=== PATIENT | male | born 1945 | race Caucasian/White ===

== ENCOUNTER 2017-12-03 07:38 | Inpatient (IN) | payer OTHER ==
[2017-12-03] VITALS (11 sets, daily range): BP systolic 118–139; BP diastolic 45–79
[~2017-12-03] VITALS: Ht 175.3 cm; Wt 76.7 kg
--- NOTE | ~2017-12-03 | EKG ---
[address] [address] ELECTROCARDIOGRAM REPORT Name: ROGER DING Room #: 209-P [facility] IN M.R.#: [id number] Admission: 12/04/17 Attend Phys: Tomas Frank MD Discharge: 12/05/17 Date of : 43 Report #: [id number] THIS REPORT FOR: //name// [facility] Test Date: 2017-12-04 Test Time: 06:25:56 Pat Name: ROGER DING Department: Room: 209 Gender: M Tube Wrapper: chikis : 1945 Requested By: Tomas Frank Order Number: [id number] MD: Nato Arias Measurements Intervals Watson Rate: 60 P: AK: 168 QRS: 89 QRSD: 154 T: -30 QT: 381 QTc: 381 Interpretive Statements Atrial-paced rhythm Right bundle branch block Compared to ECG 02/02/2004 06:37:06 Right bundle-branch block now present Atrial pacing now present Electronically Signed On 12-05-2017 13:40:56 CDT by Nato Arias [email or web address] <ELECTRONICALLY SIGNED> By: Nato Arias MD, [facility] 12/05/17 1340 0625 0625 Nato Arias MD, [facility] /EPI
--- NOTE | ~2017-12-03 | P ---
[facility] [place] [address] PROCEDURE REPORT Name: ROGER DING Room #: 209-P [facility] IN M.R.#: [id number] Admission: 12/03/17 Attend Phys: Tomas Frank MD Discharge: 12/05/17 Date of : 43 Report #: [id number] THIS REPORT FOR: //name// CC: Mane Frank PREOPERATIVE DIAGNOSES: 1. Typical atrial flutter. 2. 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 POSTOPERATIVE DIAGNOSES: 1. Typical atrial flutter. 2. 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 3. Sick sinus syndrome with sinus arrest. HISTORY: The patient is a 72-year-old with a history of newly diagnosed atrial flutter. He has had atrial flutter with rapid ventricular response. He had a recent echocardiogram showing an EF of 20-25% and a transesophageal echo this week showing an EF of 30-35% with no evidence of left atrial appendage thrombus. He is here for an A flutter ablation. ANESTHESIA: The patient underwent MAC anesthesia with no anesthesia related complications. DESCRIPTION OF PROCEDURE: The patient underwent informed consent. We discussed the details of the procedure including the risks, which include but not limited to bleeding, infection, vascular damage, cardiac perforation, stroke, AK and potential damage to the alatna conduction system requiring permanent pacemaker. The patient and his family understood these risks and are willing to proceed. The patient was brought to the EP laboratory in a fasting and sedated state and prepped and draped in a sterile fashion. I injected lidocaine to the right groin and obtained access to the right femoral vein times 3. In this vein, I placed an 8-Guamanian and two 7-Guamanian short sheaths using the modified Seldinger technique. Under fluoroscopy, I placed a decapolar catheter into the coronary sinus and a halo catheter into the right atrium. At baseline, the patient was in atrial flutter with an atrial cycle length of 240 milliseconds and the ventricular cycle length of 460 milliseconds. The QRS duration was 140 milliseconds with the right bundle branch block morphology and a QT interval of 320 milliseconds. His atrial flutter showed a proximal to distal activation along the coronary sinus and a counter clockwise activation along the halo catheter. Entrainment was performed at around 6 o'clock along the cavotricuspid isthmus and the PPI minus tachycardia cycle length was 30 milliseconds consistent with cavotricuspid isthmus dependent flutter. Next, I exchanged my 8-Guamanian short sheath for a ramp sheath and a [employer] Abraham 8 mm ablation catheter. A detailed 3D geometry of the right atrium was created and an [facility] [address] [place] [address] PROCEDURE REPORT Name: DINGROGER Room #: 209-P [facility] IN M.R.#: [id number] Admission: 12/03/17 Attend Phys: Tomas Frank MD Discharge: 12/05/17 Date of : 43 Report #: [id number] activation map of the atrial flutter was also created consistent with a cavotricuspid isthmus dependent flutter. Next, I performed ablation at 70 castaneda and 60 degrees at 6 o'clock along the isthmus. Within 90 seconds, there was acute termination of atrial flutter. The patient then had a long sinus node recovery time lasting nearly 4 seconds and we quickly came on atrial pacing. We slowed the pacing rate down and we tried to look for intrinsic sinus node function and this never returned. When we would come off pacing, the patient would have no underlying rhythm except for PVCs and pacing would be resumed. While we were pacing, there was evidence that there was a medial to lateral block with a transisthmus conduction time of 135 milliseconds. I then changed my pacing to Halo 1,2 and Halo 3,4 and there was also evidence of a lateral to medial block. I did perform additional ablation while we were pacing to see if I could further prolong our transisthmus conduction time. We monitored for a period of 30-40 minutes and there was persistence of bidirectional block and there was no spontaneous return of sinus rhythm. Given the fact that the patient has cardiomyopathy and will require beta blockers and digoxin therapy and may need antiarrhythmic drugs, I thought that proceeding with a pacemaker today would be the safest option. I therefore went to speak to the family and discussed that it appeared he had a severe sick sinus syndrome and my recommendation was for the patient to undergo pacemaker implantation today given that he had no underlying rhythm and was completely pacer dependent. They agreed to this. I therefore administered the patient Praxbind to reverse his Pradaxa as he had taken a dose this morning. The patient was then prepped for a pacemaker insertion. I pulled my ramp sheath out in exchanges for a 9-Guamanian short sheath and I pulled the Halo out and I left the decapolar catheter in the coronary sinus for continuous pacing. The patient received IV vancomycin and underwent a venogram showing patency of the left axillary vein and was prepped for pacemaker insertion. I gave lidocaine below the level of the left clavicle. Incision was made. A pocket was created over the prepectoral fascia. Access was obtained twice to left axillary vein and sheaths were positioned using the modified Seldinger technique and leads were positioned in the right ventricular apex and the right atrial appendage both with adequate pacing and sensing thresholds. These leads were sutured to the prepectoral fascia and the device was connected to the leads and tested and found to be functioning normally. At this point, our nurse pulled the decapolar catheter from his right groin with no compromise to the leads. The pocket was irrigated with vancomycin and then the pocket was closed in three layers using 2-0 for the deep layer, 3-0 for the mid layer and 4-0 for the subcuticular layer. Surgical glue was placed to the outer skin layer. The patient awoke neurologically and hemodynamically intact with no complications and no significant bleeding. The implanted pacemaker was a [employer] model # [id number], serial #[id number]. The atrial lead was a [employer] model #2088TC, 52 cm, serial #[id number]. The RV lead was a [employer] model #2088TC, 58 cm, serial #[id number]. The atrial lead demonstrated a P-wave of 2.7 millivolts, pacing impedance of 440 ohms and the pacing threshold of 0.[address] [address] PROCEDURE REPORT Name: TOÑAROGER Room #: 209-P [facility] IN M.R.#: [id number] Admission: 12/03/17 Attend Phys: Tomas Frank MD Discharge: 12/05/17 Date of : 43 Report #: [id number] at 0.4 milliseconds. The RV lead demonstrated R-wave of 4.7 millivolts, pacing impedance of 640 ohms and pacing threshold of 1 volt at 0.4 milliseconds. The device was programmed to the DDDR 60-130 mode. CONCLUSIONS: 1. Successful atrial flutter ablation with evidence of bidirectional block. 2. Severe sick sinus syndrome with sinus arrest and no underlying atrial activity. 3. Successful dual-chamber pacemaker insertion. 4. Satisfactory atrial and right ventricular pacing and sensing thresholds. <ELECTRONICALLY SIGNED> By: Tomas Frank MD 12/31/17 1409 1701 2347 Tomas Frank MD /nt
--- NOTE | ~2017-12-03 | D ---
[facility] [place] [address] DISCHARGE SUMMARY Name: ROGER DING Room #: 209-P [facility] IN M.R.#: [id number] Admission: 12/03/17 Attend Phys: Tomas Frank MD Discharge: 12/05/17 Date of : 43 Report #: [id number] THIS REPORT FOR: //name// CC: Mane Frank DATE OF SERVICE: 12/05/2017 HOSPITAL COURSE: A 72-year-old male with status post atrial flutter ablation and pacemaker placement by Dr. Frank. He had some mild renal insufficiency initially post-procedure. Creatinine went from 1.1-1.8, is now 1.5. He is up and ambulating, doing well. His incision was good. He denies any significant complaints, mild discomfort. He will be discharged to home on Pradaxa 150 b.i.d., quinapril 40, amlodipine 10, baby aspirin, atenolol 100 mg b.i.d., Symbicort and allopurinol. He is restricted from the use of the upper extremity as directed by the EP Service. He is not to get the incision wet for 1 week. There is no driving for 1 week and not lifting the elbow above the shoulder for 1 week, not lifting more than 10 pounds until he is reevaluated. He does not have to wear his sling. DISCHARGE DIAGNOSES: Atrial fibrillation, status post ablation, sick sinus syndrome, permanent pacemaker placement, acute on chronic renal insufficiency improving, presumably a tachycardic induced cardiomyopathy, EF 25-35% range, expect this to improve, some mild renal insufficiency, which we expect to improve. FOLLOWUP: Scheduled for 10 days in the office for wound dressing and incision check. He should call with any issues. DIET: Low fat, low sodium, cholesterol diet. He is to continue fluid restrictions. <ELECTRONICALLY SIGNED> By: Alessio Pearson MD, FACC 12/09/17 1539 0903 1109 Alessio Pearson MD, FACC /nt
[~2017-12-03 07:38] MED LIST: ACCUPRIL40 MG PO; AMLODIPINE BESY10 MG PO; ASPIRIN EC325 M1 PO; ASPIRIN325 PO; CIPROFLOXACIN500 M1 PO; FLOMAX PO; HYDROCHLOROTH12.5 MG PO; HYDROCODON-ACE1 EACH PO; LORTAB PO; MEDROL DOSPAK21 TAB PO; MEDROL4 MG; METHOTREXATE 22.5 M1; NABUMETONE 500500 M1 PO; NORVASC10 MG PO; PERCOCET 5-3251 EACH PO; SIMVASTATIN20 MG; SIMVASTATIN40 MG PO
[2017-12-03] MEDS ORDERED: ALLOPURINOL 10100 M1 PO (09:01)
[2017-12-03] MEDS ORDERED: ATENOLOL 100MG100 MG PO (09:01)
[2017-12-03] MEDS ORDERED: LIPITOR 20 MG T20 M1 PO (09:02)
[2017-12-03] MEDS ORDERED: SYMBICORT160 MCG/4. PO (09:03)
[2017-12-03] MEDS ORDERED: PRADAXA150 MG PO (09:04)
[2017-12-03] MEDS ORDERED: DIGOXIN125 MCG PO (09:04)
[2017-12-03] MEDS ORDERED: MOBIC7.5 MG PO (09:04)
[2017-12-03] MEDS ORDERED: ACCUPRIL40 MG PO (09:05)
[2017-12-03] MEDS ORDERED: MAXZIDE-25 MG1 EACH PO (09:06)
[2017-12-03 09:22] LABS: ABSOLUTE NEUTROPHILS 6.4 thou/uL (1.4-8.2); BASOPHILS 1.4 % (0.0-2.0); HEMOGLOBIN 11.6 gm/dL (14.0-18.0); LYMPHOCYTES 8.9 % (24.0-44.0); MCH 26.6 pg (26.0-34.0); MCHC 31.4 g/dL (28.0-37.0); MCV 84.8 fL (80.0-100.0); MONOCYTES 8.3 % (1.0-8.0); PLATELET COUNT 311 thou/uL (150-400); POLYS 75.4 % (36.0-66.0); RBC 4.36 mil/uL (4.50-6.00); RDW 18.8 % (10.5-14.5); WBC 8.5 thou/uL (4.0-11.0)
[2017-12-03 09:29] LABS: CALCIUM 9.2 mg/dL (8.5-10.1); CREATININE 1.3 mg/dL (0.7-1.3); POTASSIUM 4.9 mmol/L (3.5-5.1)
[2017-12-03 09:34] LABS: PROTIME 13.4 Seconds (9.3-11.4)
[2017-12-03 09:35] LABS: ALBUMIN 2.9 g/dL (3.4-5.0); TOTAL BILIRUBIN 0.4 mg/dL (<0.1-1.0); TOTAL PROTEIN 6.8 g/dL (6.4-8.2)
[2017-12-03 09:38] LABS: APTT 54.8 Seconds (24.5-32.8)
[2017-12-03 09:39] LABS: INR 1.3
[2017-12-04] VITALS (8 sets, daily range): BP systolic 121–138; BP diastolic 45–60
[2017-12-04 08:53] LABS: HEMATOCRIT 34.4 % (42.0-52.0); HEMOGLOBIN 10.7 gm/dL (14.0-18.0); MCH 26.6 pg (26.0-34.0); MCHC 31.1 g/dL (28.0-37.0); MCV 85.6 fL (80.0-100.0); RBC 4.03 mil/uL (4.50-6.00); RDW 18.9 % (10.5-14.5)
[2017-12-04 08:59] LABS: CALCIUM 8.9 mg/dL (8.5-10.1); CREATININE 1.8 mg/dL (0.7-1.3); POTASSIUM 4.6 mmol/L (3.5-5.1)
[2017-12-05 00:20] VITALS: BP 135/62
[2017-12-05 04:19] LABS: CALCIUM 8.7 mg/dL (8.5-10.1); CREATININE 1.5 mg/dL (0.7-1.3)
[2017-12-05 04:47] VITALS: BP 141/63
[2017-12-05 08:00] VITALS: BP 148/67
[2017-12-05] MEDS ORDERED: PRADAXA150 MG PO (09:01)
[2017-12-05 11:17] VITALS: BP 141/63
== END 2017-12-05 12:20 | disposition home or self-care (01) | DRG 243 ==
LOC: CATH 07:38 → 2N 12:39 → CATH 15:15 → 2N 17:39 → CATH 12-04 13:25 → 2N 12-04 13:25 → CATH 12-04 13:26 → 2N 12-04 13:26
PROVIDERS: Internal Medicine Cardiovascular Disease; Nurse Practitioner Adult Health
PROC: 0JH606Z Insertion of Pacemaker, Dual Chamber into Chest Subcutaneous Tissue and Fascia, Open Approach (ICD-10-PCS; principal; 2017-12-03)
PROC: 02HK3JZ Insertion of Pacemaker Lead into Right Ventricle, Percutaneous Approach (ICD-10-PCS; principal; 2017-12-03)
PROC: 02583ZZ Destruction of Conduction Mechanism, Percutaneous Approach (ICD-10-PCS; principal; 2017-12-03)
DX: I48.92 Unspecified atrial flutter (principal); E44.1 Mild protein-calorie malnutrition; I42.9 Cardiomyopathy, unspecified; I49.5 Sick sinus syndrome; I45.5 Other specified heart block; I48.91 Unspecified atrial fibrillation; N18.9 Chronic kidney disease, unspecified; Z79.82 Long term (current) use of aspirin; Z79.899 Other long term (current) drug therapy
CPT/HCPCS: 10081; 62110; 62900; 70005

== ENCOUNTER → 2018-01-18 | Outpatient (CLI) | payer OTHER ==
[~2018-01-18] MED LIST changes: +ALLOPURINOL 10100 M1 PO; +ATENOLOL 100MG100 MG PO; +DIGOXIN125 MCG PO; +LIPITOR 20 MG T20 M1 PO; +MAXZIDE-25 MG1 EACH PO; +MOBIC7.5 MG PO; +PRADAXA150 MG PO; +SYMBICORT160 MCG/4. PO
== END ==
LOC: NUC 10:24
DX: I48.91 Unspecified atrial fibrillation (principal); I10 Essential (primary) hypertension; J44.9 Chronic obstructive pulmonary disease, unspecified; E78.5 Hyperlipidemia, unspecified; Z88.8 Allergy status to other drugs, medicaments and biological substances; Z87.891 Personal history of nicotine dependence

== ENCOUNTER → 2018-04-13 | Outpatient (CLI) | payer OTHER | LOC: ULTRA 15:46 | DX: M79.89 Other specified soft tissue disorders (principal); M79.662 Pain in left lower leg; I10 Essential (primary) hypertension ==

== ENCOUNTER 2019-06-26 11:51 | Outpatient (CLI) | payer OTHER ==
[~2019-06-26] VITALS: Ht 175.3 cm; Wt 65.8 kg
[2019-06-26 12:20] VITALS: BP 157/55
[2019-06-26] MEDS ORDERED: ASPIRIN325 PO (12:34)
[2019-06-26] MEDS ORDERED: MAXZIDE-25 MG1 EACH PO (12:34)
[2019-06-26] MEDS ORDERED: PLAVIX 75 MG TA75 M1 PO (12:35)
[2019-06-26] MEDS ORDERED: IPRAT-ALBUT 0.5-3 ML INJECTION (12:37)
--- NOTE | 2019-06-26 16:39 | NUR ---
REPORT TO CCU RN. PT TAKEN TO CCU AT THIS TIME.
[2019-06-26 17:30] VITALS: BP 141/49
[2019-06-26 17:45] VITALS: BP 152/47
[2019-06-26 18:00] VITALS: BP 155/49
[2019-06-26 18:30] VITALS: BP 150/52
--- NOTE | 2019-06-26 19:14 | NUR ---
PATIENT ARRIVED TO THE FLOOR AT 1715, ALERT AND ORIENTED X4. FAMILY AT BED SIDE. RT [facility] SITE D/C/I. SEE POST CARDIAC CATH FOR VSS. CALLED DR BRANDT FOR DISCHARGE INSTRUCTION. PATIENT FAMILY DIDN'T WANT TO CRYS FOR INSTRUCTION AND THIS NURSE GAVE PATIENT VERBAL INSTRUCTIONS. PATIENT DISCAHRGED WITH SON.
[2019-07-07] MEDS ORDERED: ZYLOPRIM300 MG PO (11:07)
[2019-07-07] MEDS ORDERED: CENTRUM SILVER1 EAC7 PO (11:08)
[2019-07-07] MEDS ORDERED: NORVASC10 MG PO (11:08)
[2019-07-07] MEDS ORDERED: MUCINEX600 MG PO (11:09)
== END 2019-06-26 19:48 | disposition home or self-care (01) ==
LOC: CATH 11:51 → 2N 17:10 → CATH 19:48
DX: I65.23 Occlusion and stenosis of bilateral carotid arteries (principal); I65.03 Occlusion and stenosis of bilateral vertebral arteries; I70.1 Atherosclerosis of renal artery; I10 Essential (primary) hypertension; I25.10 Atherosclerotic heart disease of native coronary artery without angina pectoris; I42.9 Cardiomyopathy, unspecified; E78.5 Hyperlipidemia, unspecified; M10.9 Gout, unspecified; I48.92 Unspecified atrial flutter; Z90.49 Acquired absence of other specified parts of digestive tract; Z98.890 Other specified postprocedural states; Z79.01 Long term (current) use of anticoagulants; Z87.891 Personal history of nicotine dependence; Z95.0 Presence of cardiac pacemaker; Z98.52 Vasectomy status; Z79.899 Other long term (current) drug therapy; Z79.82 Long term (current) use of aspirin
CPT/HCPCS: 10081

== ENCOUNTER 2019-07-19 09:47 | Inpatient (IN) | payer OTHER ==
[2019-07-10 11:09] LABS: ABSOLUTE NEUTROPHILS 4.8 thou/uL (1.4-8.2); BASOPHILS 0.6 % (0.0-2.0); EOSINOPHILS 14.3 % (0.0-3.0); HEMATOCRIT 41.8 % (42.0-52.0); HEMOGLOBIN 13.5 gm/dL (14.0-18.0); LYMPHOCYTES 8.9 % (24.0-44.0); MCH 29.1 pg (26.0-34.0); MCHC 32.4 g/dL (28.0-37.0); MCV 89.8 fL (80.0-100.0); MONOCYTES 9.1 % (1.0-8.0); PLATELET COUNT 223 thou/uL (150-400); POLYS 67.1 % (36.0-66.0); RBC 4.65 mil/uL (4.50-6.00); RDW 17.1 % (10.5-14.5); WBC 7.2 thou/uL (4.0-11.0)
[2019-07-10 11:11] LABS: URINE BILIRUBIN NEGATIVE (Negative); URINE BLOOD NEGATIVE (Negative); URINE CLARITY CLEAR; URINE COLOR YELLOW; URINE GLUCOSE-RANDOM* NEGATIVE (Negative); URINE KETONES NEGATIVE (Negative); URINE LEUKOCYTES-REFLEX TRACE (Negative); URINE NITRITE-REFLEX NEGATIVE (Negative); URINE PROTEIN (DIPSTICK) NEGATIVE (Negative); URINE SPECIFIC GRAVITY 1.015 (1.005-1.035); URINE UROBILINOGEN 0.2 E.U./dl (0.2-1.0)
[2019-07-10 11:31] LABS: ALBUMIN 4.2 g/dL (3.4-5.0); CREATININE 1.4 mg/dL (0.7-1.3); TOTAL BILIRUBIN 0.4 mg/dL (<0.1-1.0); TOTAL PROTEIN 7.3 g/dL (6.4-8.2)
[2019-07-10 11:49] LABS: APTT 32.4 Seconds (24.5-32.8); PROTIME 10.6 Seconds (9.3-11.4)
[~2019-07-19] VITALS: Ht 175.3 cm; Wt 62.1 kg
[2019-07-19] VITALS (18 sets, daily range): BP systolic 103–156; BP diastolic 36–51
[~2019-07-19 09:47] MED LIST changes: +CENTRUM SILVER1 EAC7 PO; +IPRAT-ALBUT 0.5-3 ML INJECTION; +MUCINEX600 MG PO; +PLAVIX 75 MG TA75 M1 PO; +ZYLOPRIM300 MG PO
[2019-07-19 11:45] LABS: HEMOGLOBIN 13.3 gm/dL (14.0-18.0); MCH 28.6 pg (26.0-34.0); MCHC 31.7 g/dL (28.0-37.0); MCV 90.4 fL (80.0-100.0); RBC 4.64 mil/uL (4.50-6.00); RDW 17.2 % (10.5-14.5); WBC 6.6 thou/uL (4.0-11.0)
[2019-07-19 11:50] LABS: CALCIUM 9.5 mg/dL (8.5-10.1); CREATININE 1.5 mg/dL (0.7-1.3); POTASSIUM 4.6 mmol/L (3.5-5.1)
[2019-07-19 17:56] LABS: HEMATOCRIT 38.8 % (42.0-52.0); HEMOGLOBIN 12.2 gm/dL (14.0-18.0); MCH 28.6 pg (26.0-34.0); MCHC 31.6 g/dL (28.0-37.0); MCV 90.5 fL (80.0-100.0); RBC 4.29 mil/uL (4.50-6.00); RDW 17.2 % (10.5-14.5); WBC 9.2 thou/uL (4.0-11.0)
--- NOTE | 2019-07-19 18:31 | NUR ---
PT ARRIVED FROM PACU AT 1645. PLACED ON MONITOR. CARDENE GTT. RIGHT NECK DRSG WITH SMALL, DIME SIZE BLOOD. LEFT GROIN C/D/I. FAMILY AT BEDSIDE. PT WEARING HIS GLASSES, INFORMED ABOUT CALL LIGHT AND ICU VISITOR POLICIES. PT LOUISE DINNER. C/O SORENESS IN NECK, DOES NOT WANT MEDICATION. ST [facility] PACER, NO ISSUES.
[2019-07-20] VITALS (13 sets, daily range): BP systolic 111–129; BP diastolic 41–89
[2019-07-20 05:59] LABS: HEMATOCRIT 36.2 % (42.0-52.0); HEMOGLOBIN 11.5 gm/dL (14.0-18.0); MCH 28.7 pg (26.0-34.0); MCHC 31.8 g/dL (28.0-37.0); MCV 90.3 fL (80.0-100.0); RBC 4.01 mil/uL (4.50-6.00); RDW 16.7 % (10.5-14.5); WBC 5.4 thou/uL (4.0-11.0)
[2019-07-20 06:13] LABS: CALCIUM 8.3 mg/dL (8.5-10.1); CREATININE 1.4 mg/dL (0.7-1.3); POTASSIUM 5.3 mmol/L (3.5-5.1)
--- NOTE | 2019-07-20 06:54 | NUR ---
Pt remains on Cardene at 2.5 mg/hr to keep SBP < 140. Neck and left groin sites unchanged since beginning of shift. Taking clear liquids well without nausea. Urine output adequate. Monitor remains A-paced with rare AV pacing.
--- NOTE | 2019-07-20 08:50 | EKG ---
[address] [address] ELECTROCARDIOGRAM REPORT Name: ROGER DING Room #: 240-P [facility] IN M.R.#: [id number] Admission: 07/19/19 Attend Phys: Tommy Anderson MD Discharge: Date of : 43 Report #: [id number] THIS REPORT FOR: //name// [facility] Test Date: 2019-07-20 Test Time: 08:48:58 Pat Name: ROGER DING Department: Room: 240 P Gender: M Crester: OSMAR : 1945 Requested By: Adalgisa Chu Order Number: [id number] MD: Nato Arias Measurements Intervals Lucinda Rate: 60 P: NH: 162 QRS: 84 QRSD: 165 T: 38 QT: 425 QTc: 425 Interpretive Statements Atrial-paced rhythm Right bundle branch block Compared to ECG 12/04/2017 06:25:56 No significant changes Electronically Signed On 07-20-2019 8:50:40 CDT by Nato Arias [email or web address] <ELECTRONICALLY SIGNED> By: Nato Arias MD, [facility] 07/20/19 0850 D: [id number] Nato Arias MD, FACC /EPI
--- NOTE | 2019-07-20 09:10 | NUR ---
0850-O TO CHAIR W ASSIST X1.--VW
--- NOTE | 2019-07-20 09:58 | NUR ---
AMBULATED AROUND ENTIRE ICU W P.T.--VW
--- NOTE | 2019-07-20 10:42 | NUR ---
SATS DROPPED TO ~.86% WHEN GOTTEN OOB W/O O2 EARLIER. SATS ON 1.5L ~.93%. AMBULATED W PT,SATS DOEN TO ~.90%WITH ACTIVITY.DENIED SOB.CARDENE OFF,REMAINS UP IN CHAIR.WANTING TO GO HOME.ENC PULM TOILET.--VW
--- NOTE | 2019-07-20 11:03 | NUR ---
STATES HE'S DOING FINE IN THE CHAIR. WHEN CAN I GET RID OF THIS STUFF & GET UP & MOVE AROUND? DENIES PAIN/OP DISCOMFORT EXCEPT WHEN MOVING HEAD AROUND.--VW
--- NOTE | 2019-07-20 14:34 | NUR ---
D/W RONI OCHOA X'S CONCERNS RE:PT'S BREATHING,SATS. PT STATES HIS BREATHING IS MUCH BETTER THAN WHEN HE CAME IN. WHEN PT DOING I.S. SATS DROP TO HIGH .70'S. CURRENTLY ~.93% ON R.A., PT RESTING IN CHAIR. 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 DTR AVAILABLE TO HELP & WILL P/U PT WHEN DISCHARGED.--VW
--- NOTE | 2019-07-20 16:44 | NUR ---
1630-LAST 2 HRS PT HAS BEEN SATTING ~.94% ON R.A. AMB IN ROOM,A LITTLE SOB W EXERTION.SEEN AGAIN BY Nhung HANKS DISCH INSTRUCTIONS GIVEN.HOME W DTR.--VW
--- NOTE | 2019-07-25 13:08 | O ---
[facility] [place] [address] OPERATIVE REPORT Name: ROGER DING Room #: 240-P [facility] IN M.R.#: [id number] Admission: 07/19/19 Attend Phys: Tommy Anderson MD Discharge: 07/20/19 Date of : 43 Report #: [id number] THIS REPORT FOR: //name// CC: Mane Anderson PREOPERATIVE DIAGNOSIS: Right carotid artery stenosis. POSTOPERATIVE DIAGNOSIS: Right carotid artery stenosis. OPERATION: Transcarotid arterial revascularization (TCAR), right. SURGEON: Dr. Tommy Anderson and Jorge Adorno MD. POSTAL SUPERINTENDENT: ONDINA Gonzalez. ANESTHESIA: General. INDICATIONS: The patient is a 74-year-old with high-grade right internal carotid stenosis that measures at least 90%. The patient is a poor operative candidate because of important chronic obstructive pulmonary disease and we felt that TCAR would be a somewhat easier procedure for the patient while remaining as effective. FINDINGS AND TECHNIQUE: After general anesthesia was established, an incision was made in the neck just above the right clavicle between the two heads of the sternocleidomastoid muscle. The common carotid artery was found deep in this incision. It was difficult to expose because the patient had a stiff neck from previous surgical fusions and scar from the same procedure. In any event, we exposed and controlled the common carotid and the pursestring was placed. Heparin was given. The left femoral vein was also identified with ultrasound and entered with vascular needle followed by guidewire and catheter and the TCAR femoral component was placed over a guidewire under fluoroscopic guidance. Through the pursestring in the common carotid, the arterial needle was placed and a guidewire was passed under fluoroscopic guidance, the catheter was placed over the guidewire and this was used to exchange for a stiffer catheter. The carotid component of the TCAR system was placed over the stiffer wire. With the satisfactory ACT, the common carotid was occluded and flow was established through the shunt. Predilatation was used with a 4.5 x 30 Cordis balloon. This was done under [facility] [address] [place] [address] OPERATIVE REPORT Name: ROGER DING Room #: 240-P [facility] IN M.R.#: [id number] Admission: 07/19/19 Attend Phys: Tommy Anderson MD Discharge: 07/20/19 Date of : 43 Report #: [id number] fluoroscopic guidance. Arteriograms were done, both before and after this, the transcarotid stent using a 10 x 30 device was passed under fluoroscopic guidance and placed to expand the stenosis. Post-dilatation angioplasty was then done with a 5.0 x 30 balloon. We waited the requisite 2 minutes and then performed a final arteriography to demonstrate good position of the stent with good treatment of the stenosis. At this point, flow reversal was stopped. The common carotid was opened and the carotid femoral shunt was dismantled. The carotid component was removed and the pursestring was secured. An additional suture was placed to assure hemostasis. The femoral component was removed and pressure was applied. Protamine was given. When hemostasis was satisfactory, the carotid exposure wound was closed in layers with interrupted sutures for the platysma and subcuticular layer for the skin. The patient was taken to the recovery area in good condition where his neurologic progress was monitored. All counts were reported as correct. <ELECTRONICALLY SIGNED> By: Tommy Anderson MD 07/25/19 1308 1627 1719 Tommy Anderson MD /nt
== END 2019-07-20 16:40 | disposition home or self-care (01) | DRG 35 ==
LOC: PRE 09:47 → TBA 09:48 → ICU 09:48 → PRE 09:57 → ICU 16:58
PROVIDERS: Anesthesiology; Physician Assistant; ADMIT Surgery Vascular Surgery
PROC: 037K3DZ Dilation of Right Internal Carotid Artery with Intraluminal Device, Percutaneous Approach (ICD-10-PCS; principal; 2019-07-19)
DX: I65.21 Occlusion and stenosis of right carotid artery (principal); I48.92 Unspecified atrial flutter; I49.5 Sick sinus syndrome; J44.9 Chronic obstructive pulmonary disease, unspecified; I35.0 Nonrheumatic aortic (valve) stenosis; E78.5 Hyperlipidemia, unspecified; I10 Essential (primary) hypertension; Z95.0 Presence of cardiac pacemaker; Z79.82 Long term (current) use of aspirin; Z79.899 Other long term (current) drug therapy; Z51.89 Encounter for other specified aftercare; I25.10 Atherosclerotic heart disease of native coronary artery without angina pectoris
CPT/HCPCS: 10078; 47375; 48888; 50010; 50101; 50386; 50417; 50455; 51751; 54118; 56524; 56526; 56528; 62110; 62900; 70005

== ENCOUNTER → 2019-11-14 | Outpatient (CLI) | payer OTHER ==
[~2019-11-14] VITALS: Ht 175.3 cm; Wt 66.7 kg
[~2019-11-14] MED LIST changes: +RAYOS5 MG PO; +XARELTO15 MG PO
[2019-11-14 11:48] VITALS: BP 152/54
== END | disposition home or self-care (01) ==
LOC: CATH 11:30
DX: I87.1 Compression of vein (principal); R22.32 Localized swelling, mass and lump, left upper limb; I10 Essential (primary) hypertension; I42.9 Cardiomyopathy, unspecified; I25.10 Atherosclerotic heart disease of native coronary artery without angina pectoris; I48.92 Unspecified atrial flutter; E78.5 Hyperlipidemia, unspecified; J44.9 Chronic obstructive pulmonary disease, unspecified; M19.90 Unspecified osteoarthritis, unspecified site; M10.9 Gout, unspecified; Z98.890 Other specified postprocedural states; Z79.899 Other long term (current) drug therapy; Z87.891 Personal history of nicotine dependence; Z98.52 Vasectomy status; Z95.0 Presence of cardiac pacemaker; Z79.01 Long term (current) use of anticoagulants; Z79.82 Long term (current) use of aspirin

== ENCOUNTER → 2020-04-04 | Outpatient (CLI) | payer OTHER | LOC: SJCVCIMAG 09:05 | PROVIDERS: ATTEND Nuclear Medicine Nuclear Cardiology | DX: I65.22 Occlusion and stenosis of left carotid artery (principal); I70.201 Unspecified atherosclerosis of native arteries of extremities, right leg; E78.00 Pure hypercholesterolemia, unspecified; Z95.828 Presence of other vascular implants and grafts; Z98.890 Other specified postprocedural states; Z87.891 Personal history of nicotine dependence ==

== ENCOUNTER → 2020-04-17 | Outpatient (CLI) | payer OTHER ==
[~2020-04-17] VITALS: Ht 175.3 cm; Wt 63.5 kg
[~2020-04-17] MED LIST changes: +ASA81BEC PO; +CRESTOR10 MG PO; +FERRETTS325 MG PO; +MELOXICAM7.5 MG PO; +MUCINEX DM ER1 EAC1 PO; +PLAVIX 75 MG TA75 MG PO; +PROAIR RESPICL90 MCG INH
[2020-04-17 11:24] LABS: HEMATOCRIT 40.5 % (42.0-52.0); HEMOGLOBIN 13.2 gm/dL (14.0-18.0); MCHC 32.6 g/dL (28.0-37.0); RBC 4.4 mil/uL (4.50-6.00); RDW 17.5 % (10.5-14.5); WBC 6.3 thou/uL (4.0-11.0)
[2020-04-17 11:30] LABS: CALCIUM 9.6 mg/dL (8.5-10.1); CREATININE 1.4 mg/dL (0.7-1.3); POTASSIUM 4.6 mmol/L (3.5-5.1)
[2020-04-17 11:31] VITALS: BP 173/61
== END | disposition home or self-care (01) ==
LOC: CATH 09:26
PROVIDERS: ATTEND Nuclear Medicine Nuclear Cardiology
DX: I70.213 Atherosclerosis of native arteries of extremities with intermittent claudication, bilateral legs (principal); I70.1 Atherosclerosis of renal artery; I10 Essential (primary) hypertension; I25.10 Atherosclerotic heart disease of native coronary artery without angina pectoris; I48.91 Unspecified atrial fibrillation; I42.9 Cardiomyopathy, unspecified; E78.5 Hyperlipidemia, unspecified; J44.9 Chronic obstructive pulmonary disease, unspecified; M10.9 Gout, unspecified; M19.90 Unspecified osteoarthritis, unspecified site; Z98.890 Other specified postprocedural states; Z79.899 Other long term (current) drug therapy; Z98.52 Vasectomy status; Z90.49 Acquired absence of other specified parts of digestive tract; Z79.01 Long term (current) use of anticoagulants; Z79.82 Long term (current) use of aspirin; Z95.0 Presence of cardiac pacemaker

== ENCOUNTER → 2020-06-07 | Outpatient (CLI) | payer OTHER | LOC: SJCVCIMAG 08:54 | PROVIDERS: ATTEND Internal Medicine Cardiovascular Disease | DX: I08.2 Rheumatic disorders of both aortic and tricuspid valves (principal); R94.31 Abnormal electrocardiogram [ECG] [EKG]; I45.10 Unspecified right bundle-branch block; I27.20 Pulmonary hypertension, unspecified; I25.10 Atherosclerotic heart disease of native coronary artery without angina pectoris; I73.9 Peripheral vascular disease, unspecified; E78.00 Pure hypercholesterolemia, unspecified; Z79.899 Other long term (current) drug therapy; Z87.891 Personal history of nicotine dependence ==

== ENCOUNTER → 2021-03-13 | Outpatient (CLI) | payer OTHER | LOC: SJCVC 12:45 | PROVIDERS: ATTEND Internal Medicine Cardiovascular Disease | DX: R94.31 Abnormal electrocardiogram [ECG] [EKG] (principal); I45.10 Unspecified right bundle-branch block; I49.5 Sick sinus syndrome; I48.92 Unspecified atrial flutter; I25.10 Atherosclerotic heart disease of native coronary artery without angina pectoris; I10 Essential (primary) hypertension; E78.5 Hyperlipidemia, unspecified; M19.90 Unspecified osteoarthritis, unspecified site; E78.00 Pure hypercholesterolemia, unspecified; I42.8 Other cardiomyopathies; Z95.0 Presence of cardiac pacemaker; Z87.891 Personal history of nicotine dependence; Z79.82 Long term (current) use of aspirin; Z79.899 Other long term (current) drug therapy; Z72.89 Other problems related to lifestyle ==